=== PATIENT | male | born 1960 | race Caucasian/White ===

== ENCOUNTER 2025-08-20 06:26 | Day surgery (SDC) | payer MEDICARE, MEDICAID, SELFPAY ==
[2025-08-20] VITALS (7 sets, daily range): BP systolic 101–125; BP diastolic 71–81; BMI 43.2
[2025-08-20] MEDS: NORMOSOL-R/PLASMALYTE-A 1000 IV (09:57)
[2025-08-20 12:34] LABS: Urine Character Cloudy (Clear)
[2025-08-20 13:15] LABS: Urine White Cell >100 /HPF (0-5)
== END 2025-08-20 15:38 ==
LOC: SDS 06:26
PROVIDERS: ATTENDING PHYSICIAN Specialist
DX: R33.9 Retention of urine, unspecified (principal); N35.813 Other membranous urethral stricture, male; N39.0 Urinary tract infection, site not specified
CPT/HCPCS: 52276; 81003; 81015; 87077; 87086

== ENCOUNTER → 2025-10-01 12:41 | Outpatient (REF) | payer MEDICARE, MEDICAID, SELFPAY | LOC: RAD 12:41 | PROVIDERS: ATTENDING PHYSICIAN Nurse Practitioner Family; FAMILY PHYSICIAN Internal Medicine | DX: R60.0 Localized edema (principal) | CPT/HCPCS: 93922; 93925 ==